=== PATIENT | male | born 1990 | race Caucasian/White ===

== ENCOUNTER 2018-11-10 07:00 | Emergency (ER) | payer BC, OTHER ==
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
[2018-11-10 08:12] VITALS: BP 151/84
--- NOTE | 2018-11-10 08:37 | CR ---
[id number] RAD/RAD Knee Left 3V EXAM: RAD Knee Left 3V CLINICAL DATA: TRAUMA COMPARISON: NO PREVIOUS SIMILAR EXAM IS AVAILABLE. FINDINGS: No fracture or dislocation is seen. Tiny medial soft tissue radiopaque foreign bodies may be present. There is no air in the soft tissues. There is no cortical thickening or periosteal reaction either. IMPRESSION: NEGATIVE PLAIN FILM EXAM. Zaki Ordaz MD 11/10/18 0836 Thank you for allowing us to participate in the care of your patient.
== END 2018-11-10 08:00 | disposition home or self-care (01) ==
LOC: KA.ED 07:00
DX: S80.12XA Contusion of left lower leg, initial encounter (principal); V86.99XA Unspecified occupant of other special all-terrain or other off-road motor vehicle injured in nontraffic accident, initial encounter
CPT/HCPCS: 73562-LT; 99284-25